=== PATIENT | male | born 1990 | race Caucasian/White ===

== ENCOUNTER 2017-09-23 15:36 | Emergency (ER) | payer MEDICAID, OTHER ==
[~2017-09-23] VITALS: Wt 84.5 kg
[2017-09-23] MEDS ORDERED: morphine 4 MG/ML VIAL IV STA (16:05)
[2017-09-23] MEDS ORDERED: ONDANSETRON 4 MG INJ IV STA (16:05)
--- NOTE | 2017-09-23 16:30 | ERD ---
ER Documentation Chief Complaint Chief Complaint TESTICULAR PAIN X2 DAYS, NO INJURY, NO SWELLING HPI This is a 26-year-old male who presents to the emergency room with right testicle pain and swelling for 2 days. The patient is noted swelling and pain that has started 2 days ago to the right testicle. He states that it is enlarged and worse when he is walking. He denies any dysuria urgency or frequency, no drainage or discharge. He denies any colicky pain or flank pain. He denies any blunt trauma or injury. ROS All systems reviewed and are negative except as per history of present illness. Medications Home Meds Active Scripts Cefdinir (Cefdinir) 300 Mg Capsule, 300 MG PO BID for 14 Days, CAP Prov:TIFFANIE VALDOVINOS MD 09/23/17 Ondansetron (Ondansetron Odt) 4 Mg Tab.rapdis, 4 MG PO Q6H Y for NAUSEA AND/OR VOMITING, #10 TAB Prov:TIFFANIE VALDOVINOS MD 09/23/17 Hydrocodone/Acetaminophen (Barnwell 10-325 Tablet) 1 Each Tablet, 1 TAB PO Q6H Y for PAIN, #7 TAB Prov:TIFFANIE VALDOVINOS MD 09/23/17 Ibuprofen* (Motrin*) 800 Mg Tab, 800 MG PO Q6H Y for PAIN AND OR ELEVATED TEMP, #30 TAB Prov:TIFFANIE VALDOVINOS MD 09/23/17 Allergies Allergies: Coded Allergies: No Known Allergy (Unverified , 09/23/17) PMhx/Soc Medical and Surgical Hx: pt denies Medical Hx, pt denies Surgical Hx Hx Alcohol Use: No Hx Substance Use: No Hx Tobacco Use: No Smoking Status: Never smoker FmHx Family History: No diabetes Physical Exam Vitals Vital Signs Date Time Temp Pulse Resp B/P Pulse Ox O2 Delivery O2 Flow Rate FiO2 09/23/17 17:34 99.8 83 17 127/66 100 Room Air 09/23/17 15:40 99.8 95 17 134/74 98 Physical Exam General:Uncomfortable Head: Normocephalic, atraumatic. Eyes: Pupils equally reactive, EOM intact ENT: Moist mucous membranes Neck: Supple, no lymphadenopathy Respiratory: Lungs clear bilaterally, no distress Cardiovascular: RRR, no murmurs, rubs, or gallops Abdominal: Soft, non-tender, non-distended, no peritoneal signs : The patient has an enlarged right testicle that is diffusely tender, no improvement with elevation. Decreased reflexes noted. No lesions noted to the penis or inguinal region, no lymphadenopathy. MSK: No edema, no unilateral swelling, 5/5 strength Neurologic: Alert and oriented, moving all extremities, normal speech, no focal weakness, no cerebellar signs Skin: No rash Psych: Normal mood Result Diagram: 09/23/17 1650 09/23/17 1650 Results 24 hrs Laboratory Tests Test 09/23/17 16:50 White Blood Count 17.310^3/ul Red Blood Count 4.8710^6/ul Hemoglobin 14.8g/dl Hematocrit 42.3% Mean Corpuscular Volume 86.9fl Mean Corpuscular Hemoglobin 30.4pg Mean Corpuscular Hemoglobin Concent 35.0g/dl Red Cell Distribution Width 12.7% Platelet Count 56131^3/UL Mean Platelet Volume 9.7fl Neutrophils % 82.8% Lymphocytes % 6.9% Monocytes % 9.2% Eosinophils % 0.4% Basophils % 0.3% Nucleated Red Blood Cells % 0.0/100WBC Neutrophils # 14.410^3/ul Lymphocytes # 1.210^3/ul Monocytes # 1.610^3/ul Eosinophils # 0.110^3/ul Basophils # 0.110^3/ul Nucleated Red Blood Cells # 0.010^3/ul Urine Color YELLOW Urine Clarity CLEAR Urine pH 5.0 Urine Specific [place] 1.033 Urine Ketones NEGATIVEmg/dL Urine Nitrite NEGATIVEmg/dL Urine Bilirubin NEGATIVEmg/dL Urine Urobilinogen 1+mg/dL Urine Leukocyte Esterase NEGATIVELeu/ul Urine Microscopic RBC 1/HPF Urine Microscopic WBC 15/HPF Urine Mucus MANY/HPF Urine Hemoglobin NEGATIVEmg/dL Urine Glucose NEGATIVEmg/dL Urine Total Protein 1+mg/dl Sodium Level 139mmol/L Potassium Level 3.7mmol/L Chloride Level 102mmol/L Carbon Dioxide Level 28mmol/L Anion Gap 13 Blood Urea Nitrogen 8mg/dl Creatinine 0.73mg/dl Glucose Level 112mg/dl Calcium Level 9.8mg/dl Current Medications Medications (Trade) Dose Ordered Sig/Noé Route PRN Reason Start Time Stop Time Status Last Admin Dose Admin Morphine Sulfate (morphine) 4 mg ONCE STAT IV 12/4/17 16:05 09/23/17 16:08 DC Ondansetron HCl (Zofran Inj) 4 mg ONCE STAT IV 09/23/17 16:05 09/23/17 16:08 DC Ketorolac Tromethamine 15 mg 15 mg ONCE STAT IV 09/23/17 17:28 09/23/17 17:29 DC 09/23/17 17:40 Ceftriaxone Sodium (Rocephin) 50 ml @ 100 mls/hr ONCE ONCE IVPB 09/23/17 18:00 09/23/17 18:29 DC 09/23/17 17:40 Procedures/MDM EKG, MONITORS, & DIAGNOSTIC IMAGING: Ultrasound scrotum: IMPRESSION: Enlarged heterogeneous hypervascular right epididymis consistent with epididymitis. Dilated right spermatic cord. Normal appearance and vascularity of both testicles. RPTAT:AAJJ LAB INTERPRETATION: Leukocytosis, no renal insufficiency MEDICAL DECISION MAKING: The patient presents to the emergency room with at least 2 days of right testicular pain and swelling. The patient does have slightly decreased reflexes which raises the concern for possible testicular torsion. However this has been present for at least 48 hours. Other concerns include epididymitis or orchitis. The patient is with safe sex practices. Low clinical concern for sexually transmitted disease. Given that the symptoms have been present for 48 hours in the setting of torsion salvage is unlikely. With results however there is a higher likelihood that this is consistent with orchitis or epididymitis given the duration of symptoms. It has been gradual in onset without colicky nature. Stat scrotal ultrasound has been ordered and I will consult urology ER COURSE: Patient was given pain control medication. The patient's ultrasound shows evidence of epididymitis with good vascular flow. At this point no indication for urology consultation. The patient is pain is well controlled. He is resting comfortably. Likely urinary tract infection. The patient was given ceftriaxone and will be started on a course of Omnicef . Urine culture has been sent. Outpatient urology follow-up was recommended. I kept the patient and/or family informed of laboratory and diagnostic imaging results throughout the emergency room course. DISPOSITION PLAN: We discussed follow up with the patient's primary care doctor within 24 to 48 hours as needed. We also discussed return to the emergency room for worsening symptoms or worsening condition. Outpatient referral: Urology Discharge Medications: Barnwell, Zofran, Motrin, Omnicef Departure Diagnosis: Primary Impression: Epididymitis Additional Impression: Leukocytosis Leukocytosis type: unspecified Qualified Code: D72.829 - Leukocytosis, unspecified type Condition: TIFFANIE Alfredo MD Sep 23, 2017 16:30
--- NOTE | 2017-09-23 17:17 | RADRPT ---
PROCEDURE: US Scrotum. CLINICAL INDICATION: Right groin pain TECHNIQUE: Multiple sonographic images of the scrotal region were obtained utilizing a linear arra y transducer with webber scale and color-flow and a Doppler imaging. COMPARISON: No prior studies are available for comparison. FINDINGS: The right testicle is normal in echogenicity and echotexture. Normal testicular blood flow. The rig ht testicle measures 4.2 x 3.1 x 2.5 cm. Enlarged hypervascular right epididymis with heterogeneous echogenicity. Dilated right spermatic cord.. No right hydrocele. The left testicle is normal in echogenicity and echotexture. Normal testicular blood flow. The left testicle measures 4.7 x 2.8 x 2.5 cm. The left epididymis is normal in appearance. Trace left hydroc gomez. No evidence of a varicocele. IMPRESSION: Enlarged heterogeneous hypervascular right epididymis consistent with epididymitis. Dilated right spermatic cord. Normal appearance and vascularity of both testicles. RPTAT:AAJJ Physician Aba Date Time Electronically viewed and signed by Physician Aba on 09/23/2017 17:16 /
[2017-09-23 17:26] LABS: ABNORMAL IP MESSAGE 1; BASOPHIL # 0.1 10^3/ul (0.0-0.1); BASOPHILS % 0.3 % (0.0-2.0); EOSINOPHILS # 0.1 10^3/ul (0.0-0.5); EOSINOPHILS % 0.4 % (0.0-7.0); HEMATOCRIT 42.3 % (42.0-52.0); HEMOGLOBIN 14.8 g/dl (14.0-18.0); LYMPHOCYTES # 1.2 10^3/ul (0.8-2.9); LYMPHOCYTES % 6.9 % (15.0-51.0); MEAN CORPUSCULAR HEMOGLOBIN 30.4 pg (29.0-33.0); MEAN CORPUSCULAR VOLUME 86.9 fl (82.0-101.0); MEAN PLATELET VOLUME 9.7 fl (7.4-10.4); MONOCYTE # 1.6 10^3/ul (0.3-0.9); MONOCYTES % 9.2 % (0.0-11.0); NEUTROPHIL # 14.4 10^3/ul (1.6-7.5); NEUTROPHILS % 82.8 % (39.0-77.0); PLATELET COUNT 216 10^3/UL (140-415); POSITIVE DIFF @See below; RED BLOOD COUNT 4.87 10^6/ul (4.70-6.10); RED CELL DISTRIBUTION WIDTH 12.7 % (11.5-14.5); WHITE BLOOD COUNT 17.3 10^3/ul (4.8-10.8)
[2017-09-23] MEDS ORDERED: KETOROLAC 15 MG INJ IV STA (17:28)
[2017-09-23 17:31] LABS: ADD UMIC YES; UR ASCORBIC ACID NEGATIVE (NEGATIVE); UR BILIRUBIN (Dip) NEGATIVE (NEGATIVE); UR BLOOD (Dip) NEGATIVE (NEGATIVE); UR CLARITY CLEAR (CLEAR); UR COLOR YELLOW (YELLOW); UR GLUCOSE (Dip) NEGATIVE (NEGATIVE); UR KETONES (Dip) NEGATIVE (NEGATIVE); UR LEUKOCYTE ESTERASE (Dip) NEGATIVE Leu/ul (NEGATIVE); UR MUCUS MANY /HPF (NONE SEEN); UR NITRITE (Dip) NEGATIVE (NEGATIVE); UR RBC 1 /HPF (0-5); UR SPECIFIC GRAVITY (Dip) 1.033 (1.003-1.030); UR TOTAL PROTEIN (Dip) 1+ mg/dl (NEGATIVE); UR UROBILINOGEN (Dip) 1+ mg/dL (NEGATIVE)
[2017-09-23] MEDS ORDERED: HYDR-902 PO (17:40)
[2017-09-23] MEDS ORDERED: IBUP800T25 PO (17:40)
[2017-09-23] MEDS ORDERED: ONDA4TAB14 PO (17:40)
[2017-09-23] MEDS ORDERED: CEFD300C2 PO (17:40)
[2017-09-23] MEDS ORDERED: CEFTRIAXONE 1 GM/50 ML (PMX) 50 ML IVPB ONE (18:00)
[2017-09-23 18:25] LABS: CALCIUM 9.8 mg/dl (8.4-10.2); CREATININE 0.73 mg/dl (0.61-1.24); POTASSIUM 3.7 mmol/L (3.5-5.1)
[2017-09-23 18:50] VITALS: BP 119/69; PULSE 79; RESP 20; TEMP 98.4
== END 2017-09-23 18:50 | disposition home or self-care (01) ==
LOC: E/R 15:36
DX: N45.1 Epididymitis (principal); D72.829 Elevated white blood cell count, unspecified
CPT/HCPCS: 76870; 80048; 81001; 85025; 87086; 87591; 96374; 96375; J0696; J1885; J2405; Z7502; J2270